=== PATIENT | male | born 1965 | race Caucasian/White ===

== ENCOUNTER 2020-10-25 00:48 | Emergency (ER) | payer OTHER ==
[2020-10-25 01:18] LABS: Absolute Neutrophil Ct (ANC) 7.11 (1.4-6.9); BASOPHIL % 0.2 % (0.0-0.4); Basophil (Absolute #) 0.02 (0-0.4); Eosinophil % 0.8 % (0.00-5.0); Eosinophil (Absolute #) 0.07 (0-0.5); Hemoglobin 14.5 gm/dl (12.5-18.0); Lymphocyte (Absolute #) 1.35 (1.0-4.6); Lymphocytes % 14.8 % (24.0-44.0); Mean Cell Volume 82.7 fl (78-100); Mean Corpuscular Hemoglobin 27.9 pg (26-32); Mean Corpuscular Hgb Concent. 33.7 g/dl (32-36); Mean Platelet Volume 9.9 fl (7.5-11.0); Monocyte (Absolute #) 0.59 (0.0-1.3); Monocytes % 6.5 % (0.0-12.0); Neutrophil % 77.7 % (36.0-66.0); Platelet Count 284 K/mm3 (150-450); Red Cell Distribution Width 13.3 % (11.5-14.0); White Blood Count 9.1 K/mm3 (4.0-10.5)
[2020-10-25 01:21] LABS: Appearance CLEAR (CLEAR); Bilirubin NEGATIVE (NEGATIVE); Blood NEGATIVE Ery/ul (0-5); Glucose NEGATIVE (NEGATIVE); Ketones NEGATIVE (NEGATIVE); Leukocyte Esterase NEGATIVE (NEGATIVE); Mucus SLIGHT /HPF (NEGATIVE); Nitrite NEGATIVE (NEGATIVE); Protein,Urine Dip NEGATIVE (Negative); Specific Gravity 1.015 (1.005-1.025); Urobilinogen NEGATIVE mg/dL (0-1); WBC 0-2 /HPF (0-5)
[2020-10-25 01:22] LABS: Bacteria NONE SEEN /HPF (NEGATIVE)
[2020-10-25 01:29] LABS: ALBUMIN 4.5 g/dL (3.5-5.0); ALKALINE PHOSPHATASE 40 U/L (38-126); AMYLASE 54 U/L (30-110); ANION GAP 13.6 MEQ/L (5-15); BLOOD UREA NITROGEN 15 mg/dL (9-20); CHLORIDE 103 mmol/L (98-107); Calcium 9.1 mg/dL (8.4-10.2); Carbon Dioxide 25 mmol/L (22-30); Creatinine 1 0.82 mg/dL (0.66-1.25); EST GLOMERULAR FILTRATION RATE > 60.0 ML/MIN; Glucose 100 mg/dL (74-106); LIPASE 55 U/L (23-300); Potassium 3.9 mmol/L (3.5-5.1); SGOT/AST 28 U/L (17-59); SGPT/ALT 39 U/L (0-50); SODIUM 137 mmol/L (137-145); Total Protein 7.5 g/dL (6.3-8.2)
--- NOTE | 2020-10-25 01:39 | ERPHSYRPT ---
- History of Present Illness Historian: patient Exam Limitations: other (Poor historian) Patient Subjective Stated Complaint: pt states "I have had stomach pain for a week." Triage Nursing Assessment: pt ambulated into the er; pt is axo x4; c/o abd pain; states 7/10 pain to abd; pt states that he has been to [facility] twice and was told his stomach was clear; pt states that he gave himself a suppository 3 hours ago; pt states that he had a small BM 3 hours ago; abd is round, distended; abd is nontender abd with papliation; hyperactive abd bowel sounds in all quads; d enies N/D; pt states N; hypertensive Physician History: 55 yo wm w generalized abdominal pain x 2wks. Pt has been seen at [facility] ER x2 for the same problem. Pain is described as "tightness" and is 2/10 on scale. He denies nausea/V/D/Constipation(told my nurse small BM's) fever/dysuria/hematuria/melena/hematochezia/chest pain. Pt has had no abdominal surgeries. Nothing makes the pain better or worse. Timing/Duration: other (2 wks) Activities at Onset: rest Quality: tightness Abdominal Pain Onset Location: generalized abdomen Pain Radiation: no radiation Severity of Pain-Max: moderate Severity of Pain-Current: mild Modifying Factors: Improves With: nothing Associated Symptoms: No back, No chest pain, No diaphoresis, No diarrhea, No fever/chills, No fatigue, No headache, No heartburn, No loss of appetite, No nausea, No neck pain, No rash, No shortness of breath, No syncope, No vomiting, No weakness Previous symptoms: same symptoms as today Allergies/Adverse Reactions: No Known Drug Allergies Allergy (Unverified 10/25/20 01:01) Home Medications: Ascorbic Acid [Vitamin C] 1,000 mg PO DAILY 10/25/20 [History] Cholecalciferol (Vitamin D3) [Vitamin D] 400 unit PO DAILY 10/25/20 [History] Zinc 15 mg PO DAILY 10/25/20 [History] Hx Tetanus, Diphtheria Vaccination/Date Given: No Hx Influenza Vaccination/Date Given: No Hx Pneumococcal Vaccination/Date Given: No Travel Risk - International Travel Have you traveled outside of the country in past 3 weeks: No - Coronavirus Screening Are you exhibiting any of the following symptoms?: No Close contact with a COVID-19 positive Pt in past 14-21 Days: No - Vaccine Status Have you recieved a Covid-19 vaccination: No - Review of Systems Constitutional: No Symptoms Eyes: No Symptoms Ears, Nose, & Throat: No Symptoms Respiratory: No Symptoms Cardiac: No Symptoms Abdominal/Gastrointestinal: No Symptoms, Abdominal Pain Genitourinary Symptoms: No Symptoms Musculoskeletal: No Symptoms Skin: No Symptoms Neurological: No Symptoms Psychological: No Symptoms Endocrine: No Symptoms Hematologic/Lymphatic: No Symptoms Immunological/Allergic: No Symptoms - Past Medical History Pertinent Past Medical History: No Male Reproductive Disorders: Prostate Problems - Past Surgical History Past Surgical History: No - Social History Smoking Status: Never smoker Exposure to second hand smoke: Yes Drug Use: none Patient Lives Alone: No - Nursing Vital Signs Nursing Vital Signs: Initial Vital Signs Temperature 97.6 F 10/25/20 01:05 Pulse Rate 57 L 10/25/20 01:05 Blood Pressure 166/96 10/25/20 01:05 O2 Sat by Pulse Oximetry 98 10/25/20 01:05 Pain Scale Pain Intensity 7 Hypertensive - Physical Exam General Appearance: no apparent distress Eye Exam: PERRL/EOMI, eyes nml inspection Ears, Nose, Throat Exam: normal ENT inspection, TMs normal, pharynx normal, moist mucous membranes Neck Exam: normal inspection, non-tender, supple, full range of motion, No meningismus, No mass, No Brudzinski, No Kernig's Respiratory Exam: normal breath sounds, lungs clear, airway intact Cardiovascular Exam: regular rate/rhythm, normal heart sounds, normal peripheral pulses, No murmur Gastrointestinal/Abdomen Exam: soft, normal bowel sounds, distention, No tenderness Back Exam: normal inspection, normal range of motion, No CVA tenderness Extremity Exam: normal inspection, normal range of motion Neurologic Exam: alert, oriented x 3, cooperative, manager air II-XII nml as tested, normal mood/affect, nml station & gait, sensation nml, No motor deficits, No sensory deficit Skin Exam: normal color, warm, dry Lymphatic Exam: No adenopathy SpO2 Interpretation: normal SpO2: 98 O2 Delivery: Room Air - Course Nursing assessment & vital signs reviewed: Yes EKG Interpreted by Me: RATE (Sinus Armando/R55/Incomplete RBBB/Normal QT-QTc/No acute ST changes) Ordered Tests: Active Orders 24 hr Category Date Time Status EKG-ER Only STAT Care 10/25/20 01:05 Active IV Insertion STAT Care 10/25/20 01:05 Active ABDOMEN AND PELVIS W CONTRAST [CT] Stat Exams 10/25/20 01:05 Taken AMYLASE Stat Lab 10/25/20 01:15 Completed CBC W DIFF Stat Lab 10/25/20 01:15 Completed CMP Stat Lab 10/25/20 01:15 Completed LIPASE Stat Lab 10/25/20 01:15 Completed TROPONIN Q3H Lab 10/25/20 01:15 Completed TROPONIN Q3H Lab 10/25/20 04:15 Ordered TROPONIN Q3H Lab 10/25/20 07:15 Ordered TROPONIN Q3H Lab 10/25/20 10:15 Ordered TROPONIN Q3H Lab 10/25/20 13:15 Ordered UA W/RFX UR CULTURE Stat Lab 10/25/20 01:15 Completed Lab/Rad Data: Laboratory Result Diagrams 10/25/20 01:15 10/25/20 01:15 Laboratory Results 10/25/20 10/25/20 10/25/20 Range/Units 01:15 01:15 01:15 WBC 9.1 (4.0-10.5) K/mm3 RBC 5.20 (4.1-5.6) M/mm3 Hgb 14.5 (12.5-18.0) gm/dl Hct 43.0 (42-50) % MCV 82.7 (78-100) fl MCH 27.9 (26-32) pg MCHC 33.7 (32-36) g/dl RDW 13.3 (11.5-14.0) % Plt Count 284 (150-450) K/mm3 MPV 9.9 (7.5-11.0) fl Gran % 77.7 H (36.0-66.0) % Eos # (Auto) 0.07 (0-0.5) Absolute Lymphs (auto) 1.35 (1.0-4.6) Absolute Monos (auto) 0.59 (0.0-1.3) Lymphocytes % 14.8 L (24.0-44.0) % Monocytes % 6.5 (0.0-12.0) % Eosinophils % 0.8 (0.00-5.0) % Basophils % 0.2 (0.0-0.4) % Absolute Granulocytes 7.11 H (1.4-6.9) Basophils # 0.02 (0-0.4) Sodium 137 (137-145) mmol/L Potassium 3.9 (3.5-5.1) mmol/L Chloride 103 (98-107) mmol/L Carbon Dioxide 25 (22-30) mmol/L Anion Gap 13.6 (5-15) MEQ/L BUN 15 (9-20) mg/dL Creatinine 0.82 (0.66-1.25) mg/dL Estimated GFR > 60.0 ML/MIN Glucose 100 (74-106) mg/dL Calcium 9.1 (8.4-10.2) mg/dL Total Bilirubin 0.60 (0.2-1.3) mg/dL AST 28 (17-59) U/L ALT 39 (0-50) U/L Alkaline Phosphatase 40 (38-126) U/L Troponin I < 0.012 (0.000-0.034) ng/mL Serum Total Protein 7.5 (6.3-8.2) g/dL Albumin 4.5 (3.5-5.0) g/dL Amylase 54 (30-110) U/L Lipase 55 (23-300) U/L Urine Color (YELLOW) Urine Appearance (CLEAR) Urine pH (5-6) Ur Specific [place] (1.005-1.025) Urine Protein (Negative) Urine Ketones (NEGATIVE) Urine Blood (0-5) Ronal/ul Urine Nitrite (NEGATIVE) Urine Bilirubin (NEGATIVE) Urine Urobilinogen (0-1) mg/dL Ur Leukocyte Esterase (NEGATIVE) Urine WBC (Auto) (0-5) /HPF Urine RBC (Auto) (0-2) /HPF U Epithel Cells (Auto) (FEW) /HPF Urine Bacteria (Auto) (NEGATIVE) /HPF Urine Mucus (Auto) (NEGATIVE) /HPF Urine Culture Reflexed (NO) Urine Glucose (NEGATIVE) mg/dL 10/25/20 Range/Units 01:15 WBC (4.0-10.5) K/mm3 RBC (4.1-5.6) M/mm3 Hgb (12.5-18.0) gm/dl Hct (42-50) % MCV (78-100) fl MCH (26-32) pg MCHC (32-36) g/dl RDW (11.5-14.0) % Plt Count (150-450) K/mm3 MPV (7.5-11.0) fl Gran % (36.0-66.0) % Eos # (Auto) (0-0.5) Absolute Lymphs (auto) (1.0-4.6) Absolute Monos (auto) (0.0-1.3) Lymphocytes % (24.0-44.0) % Monocytes % (0.0-12.0) % Eosinophils % (0.00-5.0) % Basophils % (0.0-0.4) % Absolute Granulocytes (1.4-6.9) Basophils # (0-0.4) Sodium (137-145) mmol/L Potassium (3.5-5.1) mmol/L Chloride (98-107) mmol/L Carbon Dioxide (22-30) mmol/L Anion Gap (5-15) MEQ/L BUN (9-20) mg/dL Creatinine (0.66-1.25) mg/dL Estimated GFR ML/MIN Glucose (74-106) mg/dL Calcium (8.4-10.2) mg/dL Total Bilirubin (0.2-1.3) mg/dL AST (17-59) U/L ALT (0-50) U/L Alkaline Phosphatase (38-126) U/L Troponin I (0.000-0.034) ng/mL Serum Total Protein (6.3-8.2) g/dL Albumin (3.5-5.0) g/dL Amylase (30-110) U/L Lipase (23-300) U/L Urine Color YELLOW (YELLOW) Urine Appearance CLEAR (CLEAR) Urine pH 7.0 (5-6) Ur Specific [place] 1.015 (1.005-1.025) Urine Protein NEGATIVE (Negative) Urine Ketones NEGATIVE (NEGATIVE) Urine Blood NEGATIVE (0-5) Ronal/ul Urine Nitrite NEGATIVE (NEGATIVE) Urine Bilirubin NEGATIVE (NEGATIVE) Urine Urobilinogen NEGATIVE (0-1) mg/dL Ur Leukocyte Esterase NEGATIVE (NEGATIVE) Urine WBC (Auto) 0-2 (0-5) /HPF Urine RBC (Auto) NONE (0-2) /HPF U Epithel Cells (Auto) NONE (FEW) /HPF Urine Bacteria (Auto) NONE SEEN (NEGATIVE) /HPF Urine Mucus (Auto) SLIGHT (NEGATIVE) /HPF Urine Culture Reflexed NO (NO) Urine Glucose NEGATIVE (NEGATIVE) mg/dL - Progress Progress Note: 10/25/20 03:43 Pt refused pain meds as level only a 2 Counseled pt/family regarding: lab results, diagnosis, need for follow-up, rad results - Departure Departure Disposition: Home Clinical Impression: Abdominal pain Condition: Stable Critical Care Time: No Instructions: Acute Abdomen (Belly Pain), Adult (DC) Additional Instructions: Follow up with your family MD Return to ER for increasing pain or temperature greater than 100.5 Bentyl as needed for pain Prescriptions: Dicyclomine HCl 20 mg [Bentyl 20 mg] 20 mg PO TID PRN #20 tablet PRN Reason: Pain
[2020-10-25 03:51] VITALS: BP 149/94; PULSE 61; O2SAT 96
--- NOTE | 2020-10-25 08:54 | XRAY ---
Indication: Abdomen pain, bloating, and difficulty with bowel movements. Multiple contiguous axial images obtained through the abdomen and pelvis using 80 cc Isovue 370 contrast. Comparison: None Lung bases are clear. Heart is not enlarged. Noncontrasted stomach and bowel loops appear nonobstructed. Normal appendix. Little to no colonic fecal debris. Enlarged/nodular prostate gland impresses on the base of the urinary bladder. Remaining liver, gallbladder, pancreas, spleen, general glands, kidneys, ureters, and bladder are unremarkable. Minimal scattered aortoiliac calcifications. No AAA or pathologic retroperitoneal lymphadenopathy. Osseous structures intact with mild/moderate degenerative changes throughout the spine. Small fatty umbilical hernia. Impression: 1. Enlarged/nodular prostate gland, small fatty umbilical hernia, and chronic bony findings. 2. Remaining CT abdomen/pelvis with contrast exam is negative. Comment: Preliminary interpretation was made by [facility]. No critical discrepancy.
== END 2020-10-25 04:01 | disposition home or self-care (01) ==
LOC: ED 00:48
DX: R10.84 Generalized abdominal pain (principal); Z79.899 Other long term (current) drug therapy
CPT/HCPCS: 36000; 36415; 74177; 80053; 81001; 82150; 83690; 84484; 85025; 93005; 99284

== ENCOUNTER 2021-03-14 05:45 | Day surgery (SDC) | payer SELFPAY ==
--- NOTE | 2021-02-20 11:45 | HP ---
DATE OF SURGERY: 02/21/2021 HISTORY OF PRESENT ILLNESS: The patient presents for colonoscopy. He denies any GI signs or symptoms at this time. Denies any family history of colon cancer. Unsure if the patient has had colonoscopy in the past. PAST MEDICAL HISTORY: History of melanoma. PAST SURGICAL HISTORY: Reports melanoma removed. ALLERGIES: NKDA. MEDICATIONS: None. FAMILY HISTORY: None reported. SOCIAL HISTORY: None reported. REVIEW OF SYSTEMS: CONSTITUTIONAL: Denies fever or chills. CHEST: Denies shortness of breath. CVS: Denies chest pain. ABDOMEN: Denies abdominal pain, nausea, vomiting, diarrhea, constipation or rectal bleeding. PHYSICAL EXAMINATION: GENERAL: No acute distress. CHEST: Nonlabored. No shortness of breath. CVS: Regular rate and rhythm. ABDOMEN: Soft, nontender. IMPRESSION: Screening. PLAN: Colonoscopy with Dr. Weston Lopez. As dictated by Perla Martin NP.
--- NOTE | 2021-03-11 15:07 | HP ---
DATE OF SURGERY: 03/14/2021 HISTORY OF PRESENT ILLNESS: The patient is a 56-year-old male presents for screening colonoscopy. The patient has not had a colonoscopy to date. Unaware of any signs or symptoms at this time. PAST MEDICAL HISTORY: None reported. PAST SURGICAL HISTORY: None reported. ALLERGIES: NKDA. MEDICATIONS: None reported. FAMILY HISTORY: None reported. SOCIAL HISTORY: None reported. REVIEW OF SYSTEMS: CONSTITUTIONAL: Denies fever or chills. CHEST: Denies shortness of breath. CVS: Denies chest pain. ABDOMEN: Denies abdominal pain, nausea, vomiting, diarrhea, constipation or rectal bleeding. PHYSICAL EXAMINATION: GENERAL: No acute distress. CHEST: Nonlabored. No shortness of breath. CVS: Regular rate and rhythm. ABDOMEN: Soft, nontender. IMPRESSION: Screening. PLAN: Colonoscopy with Dr. Weston Lopez. As dictated by Perla Martin NP.
[2021-03-14] MEDS ORDERED: Lactated Ringers 1,000 ML IV SCH (06:30)
[2021-03-14] MEDS ORDERED: DIPRIVAN 200 MG/20 ML IV ONE (07:32)
[2021-03-14] MEDS ORDERED: Versed 2 MG/2 ML Injection ONE (07:32)
--- NOTE | 2021-03-14 08:52 | OP ---
SURGERY DATE/TIME: 03/14/2021 0824 PREOPERATIVE DIAGNOSIS: Screening. POSTOPERATIVE DIAGNOSIS: One polyp (1.5 cm) rectal. PROCEDURES: 1) Colonoscopy complete to cecum. 2) Hot snare polypectomy rectal polyp x1. SURGEON: Weston Lopez M.D. ANESTHESIA: MAC. COMPLICATIONS: None. CONDITION: Stable. INDICATION: A patient requiring evaluation. DESCRIPTION OF PROCEDURE: Taken to endoscopy. MAC sedation provided. Excellent anesthesia level was present. Anal digital examination satisfactory. Scope introduced. The scope advanced to the cecum. Base of the cecum, ileocecal valve was normal. Ascending, hepatic, transverse, splenic, descending, sigmoid, rectum. The rectum posterior left lateral wall a 1.5 cm polyp is picked up with a snare and taken. Base was good. The polyp was hooked on the end of the suction and delivered intact and sent for pathology. The patient tolerated the procedure satisfactorily. Follow up in three years. Excellent prep.
[2021-03-18 16:44] VITALS: BP 140/94; PULSE 65; O2SAT 98
== END 2021-03-14 09:33 | disposition home or self-care (01) ==
LOC: SDC 05:45
PROVIDERS: ATTEND Surgery
DX: D12.8 Benign neoplasm of rectum (principal)
CPT/HCPCS: J2250; J2704